=== PATIENT | female | born 1960 | race Caucasian/White ===

== ENCOUNTER → 2016-09-11 | Outpatient (CLI) | payer BC ==
--- NOTE | 2016-09-11 18:04 | Diagnostic Imaging Report ---
PROCEDURE: US thyroid. TECHNIQUE: Multiple real-time grayscale images were obtained of the thyroid in various projections. INDICATION: Followup nodules. COMPARISON: 03/07/15 exam. FINDINGS: The right thyroid lobe is 4.8 x 1.8 x 2.0 cm. The left lobe is 4.1 x 1.1 x 1.2 cm. In the right lobe, there is a 1.7 x 2.1 x 1.2 cm solid nodule in the mid right thyroid lobe, larger compared to the prior exam of 03/07/2015 when it measured 1.7 x 1.0 x 1.4 cm. A cystic adjacent lesion with no significant solid component is seen, measuring 1.3 cm abutting the lateral inferior aspect of the solid nodule. The right lobe demonstrates a 1.2 x 0.9 x 0.6 cm nodule, superiorly, with no significant increased flow. This is similar to the previous study. There is, inferiorly in the left lobe, a small colloid cyst less than 5 mm in size. IMPRESSION: Multiple thyroid nodules are again demonstrated with a dominant lesion in the mid right thyroid lobe, now measuring up to 2.1 cm in size. Correlate with FNA results from August 2013 of this lesion and consider repeating the biopsy given the enlargement. Dictated by: Dictated on workstation # [id number]
== END ==
LOC: RAD 12:50
PROVIDERS: ATTEND Nurse Practitioner Family
DX: E04.1 Nontoxic single thyroid nodule (principal)
CPT/HCPCS: 76536

== ENCOUNTER 2017-01-15 08:56 | Outpatient (CLI) | payer BC ==
[~2017-01-15] VITALS: Ht 165.1 cm; Wt 78.9 kg
[2017-01-15 09:25] VITALS: BP 142/80
[2017-01-15 10:07] LABS: BASOPHILS # (AUTO) 0.1 10^3/uL (0.0-0.1); BASOPHILS % (AUTO) 1 % (0-10); EOSINOPHILS # (AUTO) 0.2 10^3/uL (0.0-0.3); EOSINOPHILS % (AUTO) 3 % (0-10); LYMPHOCYTES # (AUTO) 1.8 X 10^3 (1.0-4.0); LYMPHOCYTES % (AUTO) 34 % (12-44); MEAN CORPUSCULAR HEMOGLOBIN 28 PG (25-34); MEAN CORPUSCULAR HGB CONC 33 G/DL (32-36); MEAN CORPUSCULAR VOLUME 84 FL (80-99); MEAN PLATELET VOLUME 10.4 FL (7.4-10.4); MONOCYTES # (AUTO) 0.4 X 10^3 (0.0-1.0); MONOCYTES % (AUTO) 7 % (0-12); NEUTROPHILS # (AUTO) 2.9 X 10^3 (1.8-7.8); NEUTROPHILS % (AUTO) 55 % (42-75); PLATELET COUNT 246 10^3/uL (130-400); RED BLOOD COUNT 4.91 10^6/uL (4.35-5.85); RED CELL DISTRIBUTION WIDTH 14.7 % (10.0-14.5); WHITE BLOOD COUNT 5.3 10^3/uL (4.3-11.0)
[2017-01-15 10:21] LABS: ANION GAP 6 MMOL/L (5-14); BLOOD UREA NITROGEN 12 MG/DL (7-18); BUN/CREATININE RATIO 16; CALCIUM 9.1 MG/DL (8.5-10.1); CARBON DIOXIDE 26 MMOL/L (21-32); CHLORIDE 107 MMOL/L (98-107); CREATININE SERUM 0.73 MG/DL (0.60-1.30); GFR ESTIMATED > 60; GLUCOSE 94 MG/DL (70-105); POTASSIUM 4.6 MMOL/L (3.6-5.0); SODIUM 139 MMOL/L (135-145)
== END 2017-01-15 09:45 | disposition home or self-care (01) ==
LOC: PREOP 08:56
PROVIDERS: ATTEND Otolaryngology Otolaryngology/Facial Plastic Surgery
DX: Z01.812 Encounter for preprocedural laboratory examination (principal); Z11.2 Encounter for screening for other bacterial diseases; E04.1 Nontoxic single thyroid nodule
CPT/HCPCS: 36415; 80048; 85025; 87081; 93005

== ENCOUNTER 2017-01-22 06:22 | Day surgery (SDC) | payer BC ==
[2017-01-22] VITALS (10 sets, daily range): BP systolic 107–126; BP diastolic 56–74
[~2017-01-22] VITALS: Ht 165.1 cm; Wt 78.9 kg
--- NOTE | 2017-01-22 06:30 | Progress Note-Pre Operative ---
Pre-Operative Progress Note H&P Reviewed The H&P was reviewed, patient examined and no changes noted. Date H&P Reviewed: Jan 22, 2017 Time H&P Reviewed: 06:25 Pre-Operative Diagnosis: Right Thyroid Nodules DORIS HENNESSY MD Jan 22, 2017 6:30 am
[2017-01-22] MEDS ORDERED: LIDOCAINE/EPI 1%-1:100,000 (XYLOCAINE) 20ML ONE (07:02)
[2017-01-22] MEDS ORDERED: MUPIROCIN 2% OINT 22 GM (BACTROBAN) TUBE ONE (07:02)
[2017-01-22] MEDS: LACTATED RINGERS 1,000 ML IV PRN ×2 (07:29→09:06)
[2017-01-22] MEDS ORDERED: LACTATED RINGERS 1,000 ML IV ONE ×2 (07:49→09:07)
[2017-01-22] MEDS ORDERED: MIDAZOLAM 2 MG/2 ML (VERSED) VIAL ONE (07:49)
[2017-01-22] MEDS ORDERED: DEXAMETHASONE PF 10 MG/ML (DECADRON) VIAL ONE (07:49)
[2017-01-22] MEDS ORDERED: ROCURONIUM 50 MG/5 ML (ZEMURON) VIAL IV ONE (07:49)
[2017-01-22] MEDS ORDERED: fentaNYL INJECTION 100 MCG/2 ML AMP ONE ×2 (07:49→09:09)
[2017-01-22] MEDS ORDERED: ONDANSETRON 4 MG/2 ML (SDV) Z0FRAN ONE (07:49)
[2017-01-22] MEDS ORDERED: SEVOFLURANE (ULTANE) 15 ML INHAL SOLN ONE ×3 (07:49→10:11)
[2017-01-22] MEDS ORDERED: proPOfol 200 MG/20 ML (DIPRIVAN) VIAL IV ONE (07:49)
[2017-01-22] MEDS ORDERED: LIDOCAINE PF 2% 5 ML (XYLOCAINE) VIAL ONE (07:49)
[2017-01-22] MEDS ORDERED: SUCCINYLCHOLINE INJ 100 MG/5 ML SYR ONE (09:07)
[2017-01-22] MEDS ORDERED: MEPERIDINE (DEMEROL) INJ 50 MG/ML IM PRN (10:00)
[2017-01-22] MEDS ORDERED: HYDROcodone/APAP 5 MG/325 MG (LORTAB) TAB PO PRN (10:00)
[2017-01-22] MEDS ORDERED: ONDANSETRON 4 MG/2 ML (SDV) Z0FRAN IV PRN (10:00)
[2017-01-22] MEDS ORDERED: ACETAMINOPHEN 500 MG TAB (TYLENOL) PO PRN (10:00)
[2017-01-22] MEDS ORDERED: morphine INJ 10 MG/ML 1ML (SYR OR VIAL) ONE (10:04)
--- NOTE | 2017-01-22 10:04 | Progress Note-Post Operative ---
Post-Operative Progess Note Surgeon (s)/Chief Maintenance Supervisor (s) Surgeon DORIS HENNESSY MD Chief Maintenance Supervisor n/a Pre-Operative Diagnosis RIGHT THYROID NODULES Post-Operative Diagnosis same Post-Op Procedure Note Date of Procedure: Jan 22, 2017 Name of Procedure Performed: Right Thyroid Lobectomy Description & Findings Description and Findings: n/a Anesthesia Type get Estimated Blood Loss minimal Packing none. Specimen(s) collected/removed Right Thyroid Lobe with Multiple Nodules-Frozen benign follicular change-no cancer seen on frozen DORIS HENNESSY MD Jan 22, 2017 10:04 am
[2017-01-22] MEDS ORDERED: ONDANSETRON 4 MG/2 ML (SDV) Z0FRAN IVP PRN (10:30)
[2017-01-22] MEDS ORDERED: HYDROmorphone (DILAUDID) 2 MG/ML VIAL IVP PRN (10:30)
[2017-01-22] MEDS: morphine INJ 10 MG/ML 1ML (SYR OR VIAL) IVP PRN ×2 (10:37→10:42)
[2017-01-22] MEDS: D5 1/2 NS W/KCL 20 MEQ/L 1,000 ML IV SCH ×2 (11:15→19:27)
--- NOTE | 2017-01-22 17:28 | Progress Note-Standard ---
Standard Progress Note Progress Notes/Assess & Plan Progress/Assessment & Plan ENT-Elena Doing well post-op Dressing taken off-redness to skin where tape was but otherwise incision looks good DRain with 25cc since surgery Voice normal Swallowing normal Calcium hasnt been done yet observe tongiht and [facility] DORIS HENNESSY MD Jan 22, 2017 5:28 pm
[2017-01-23] VITALS: BP 108/57
[2017-01-23 03:32] VITALS: BP 109/59
[2017-01-23 05:44] VITALS: BP 108/60
--- NOTE | 2017-01-23 06:47 | Progress Note-Standard ---
Standard Progress Note Progress Notes/Assess & Plan Progress/Assessment & Plan ENTScarlett Doing well post-op Dressing taken off-redness to skin where tape was but otherwise incision looks good DRain with 25cc since surgery Voice normal Swallowing normal Calcium hasnt been done yet observe tongiht and hten home tmorrow post brekfast Hitesh Doing well minimal pain Drain d/c'ed neck incision flat and intact kwasi ldischarge after breakfast RTC-1 week Discharge prescriptions in chart TSH level in 2-3 wqeeks-will arrange for at time of suture removal Final Diagnosis s/p right thyroid lobectomy DORIS HENNESSY MD Jan 23, 2017 6:47 am
[2017-01-23 07:37] VITALS: BP 109/56
[2017-01-23] MEDS ORDERED: HYDR-3812 PO (08:43)
[2017-01-23 10:03] VITALS: BP 109/56
== END 2017-01-23 09:05 | disposition home or self-care (01) ==
LOC: SDC 06:22 → 4TH 11:15 → SDC 01-23 09:05
PROVIDERS: ATTEND Otolaryngology Otolaryngology/Facial Plastic Surgery
DX: E04.1 Nontoxic single thyroid nodule (principal)
CPT/HCPCS: 36415; 82310; 88307; 88331; 88332